=== PATIENT | male | born 1975 | race Hispanic/Latino ===

== ENCOUNTER 2022-06-22 11:11 | Emergency (ER) | payer OTHER ==
[~2022-06-22] VITALS: Ht 170.2 cm; Wt 100.2 kg
[2022-06-22] MEDS ORDERED: KETOROLAC 15MG/ML VIAL (15MG/ML) IM ONE (12:00)
[2022-06-22 13:20] VITALS: BP 132/78
== END 2022-06-22 13:21 | disposition home or self-care (01) ==
LOC: EDH 11:11
DX: R07.89 Other chest pain (principal); R07.81 Pleurodynia; Z98.890 Other specified postprocedural states; W01.0XXA Fall on same level from slipping, tripping and stumbling without subsequent striking against object, initial encounter; Y93.89 Activity, other specified; Y92.89 Other specified places as the place of occurrence of the external cause; Y99.8 Other external cause status
CPT/HCPCS: 99283; 71045; 96372; J1885